=== PATIENT | female | born 1975 | race Caucasian/White ===

== ENCOUNTER 2017-06-21 05:45 | Day surgery (SDC) | payer BC ==
[~2017-06-21] VITALS: Ht 149.9 cm; Wt 56.2 kg
[2017-06-21 06:18] LABS: HCG,QUAL RESULT NEGATIVE (NEGATIVE)
[2017-06-21] MEDS ORDERED: SEVOFLURANE 15 MIN GAS INH ONE (07:30)
[2017-06-21] MEDS ORDERED: BACITRACIN ZINC 15 GM TOPICAL OINTMENT TP ONE (07:30)
[2017-06-21] MEDS ORDERED: OXYMETAZOLINE HCL 0.05% NASAL SPRAY NS ONE (07:30)
[2017-06-21] MEDS ORDERED: LR 1,000 ML IV.SOLN IV ONE (07:30)
[2017-06-21] MEDS ORDERED: NS 50 ML BAG IV ONE (07:30)
[2017-06-21] MEDS ORDERED: fentaNYL CITRATE 250 MCG/5 ML AMP IV ONE (07:30)
[2017-06-21] MEDS ORDERED: MUPIROCIN 2% TOPICAL OINTMENT 22 GM TP ONE (07:30)
[2017-06-21] MEDS ORDERED: PROPOFOL 200MG/ 20ML VIAL (DIPRIVAN) IV ONE (07:30)
[2017-06-21] MEDS ORDERED: NS IRRIG SOLN 1000 ML IR ONE (07:30)
[2017-06-21] MEDS ORDERED: ONDANSETRON HCL 4 MG/2 ML VIAL IVP ONE (07:30)
[2017-06-21] MEDS ORDERED: WATER FOR IRRIGATION,STERILE 1,000 ML IRRIG.SOLN IR ONE (07:30)
[2017-06-21] MEDS ORDERED: ROCURONIUM BROMIDE 10 MG/ML (ZEMURON) IV ONE (07:30)
[2017-06-21] MEDS ORDERED: EPINEPHrine 1 MG/ML AMP IVP ONE (07:30)
[2017-06-21] MEDS ORDERED: LIDOCAINE/EPI 1% 1:100000 20 ML VIAL INJ ONE (07:30)
[2017-06-21] MEDS ORDERED: DEXAMETHASONE SOD PHOSPHATE 4 MG/ML VIAL IVP ONE (07:30)
[2017-06-21] MEDS ORDERED: MIDAZOLAM HCL 5 MG/5 ML VIAL IVP ONE (07:30)
[2017-06-21] MEDS ORDERED: LR 1,000 ML IV SCH (08:27)
[2017-06-21] MEDS ORDERED: MORPHINE 2 MG/ML INJ. SYRINGE IVP PRN ×3 (08:30)
[2017-06-21] MEDS ORDERED: METOCLOPRAMIDE HCL 10 MG/2 ML VIAL IVP PRN (08:30)
[2017-06-21] MEDS ORDERED: ALBUTEROL SULFATE 0.083% 2.5 MG/3 ML VIAL.NEB INH ONE (10:16)
[2017-06-21] MEDS ORDERED: MORPHINE 4 MG/ML INJ. SYRINGE ONE (10:24)
[2017-06-21 10:59] VITALS: BP_SYST 114
== END 2017-06-21 13:15 | disposition home or self-care (01) ==
LOC: SDS 05:45 → SMU 05:45 → SDS 13:15
PROVIDERS: ATTEND Otolaryngology
DX: J34.2 Deviated nasal septum (principal); J32.9 Chronic sinusitis, unspecified; J34.89 Other specified disorders of nose and nasal sinuses; J32.4 Chronic pansinusitis; Z79.899 Other long term (current) drug therapy; J45.20 Mild intermittent asthma, uncomplicated; M19.90 Unspecified osteoarthritis, unspecified site
CPT/HCPCS: 30140; 30520; 30999; 31255; 31267; 84703; 88305; 88311; 94640; C1726; J0171; J1100; J2250; J2270; J2405; J2704; J3010; J7120